=== PATIENT | male | born 1950 | race Caucasian/White ===

== ENCOUNTER 2022-03-18 10:53 | Day surgery (SDC) | payer MEDICARE, BC ==
[~2022-03-18] VITALS: Ht 180.3 cm; Wt 108.5 kg
[2022-03-18] VITALS (17 sets, daily range): BP systolic 99–175; BP diastolic 45–90
[2022-03-18] MEDS ORDERED: LEVO25TA7 PO (11:48)
[2022-03-18] MEDS ORDERED: VALS80TA32 PO (11:48)
[2022-03-18] MEDS ORDERED: HYDR-3973 PO (11:48)
[2022-03-18] MEDS ORDERED: ROPI2TAB7 PO (11:48)
[2022-03-18] MEDS ORDERED: DULO60CA65 PO (11:48)
[2022-03-18] MEDS ORDERED: ROSU20TA31 PO (11:48)
[2022-03-18] MEDS ORDERED: FLO0.4C PO (11:48)
[2022-03-18] MEDS ORDERED: BUPR1PAT23 TOP (11:48)
[2022-03-18] MEDS ORDERED: Vitamin D (11:53)
[2022-03-18] MEDS ORDERED: Benfotiamine (11:53)
[2022-03-18] MEDS ORDERED: MULT-1172 (11:53)
[2022-03-18] MEDS ORDERED: CYCL-1 PO (11:53)
[2022-03-18] MEDS ORDERED: ALPH100C PO (11:53)
[2022-03-18] MEDS ORDERED: UBID50TA3 PO (11:53)
[2022-03-18] MEDS ORDERED: FISH1CAP15 PO (11:53)
[2022-03-18] MEDS ORDERED: Super B Complex (11:53)
[2022-03-18 12:13] LABS: BASOPHILS % (AUTO) 0.4 % (0-1); EOSINOPHILS # (AUTO) 0.2 X10'3 (0-0.9); EOSINOPHILS % (AUTO) 2.1 % (0-6); HEMATOCRIT 42.1 % (42.0-52.0); HEMOGLOBIN 14.1 g/dl (14.0-17.9); LYMPHOCYTES # (AUTO) 2.5 X10'3 (1.1-4.8); LYMPHOCYTES % (AUTO) 32.9 % (21-51); MEAN CORPUSCULAR HEMOGLOBIN 30.1 PG (27.0-31.0); MEAN CORPUSCULAR HGB CONC 33.6 g/dL (33.0-36.5); MEAN CORPUSCULAR VOLUME 89.6 FL (78-98); MEAN PLATELET VOLUME 8.5 FL (7.4-10.4); MONOCYTES # (AUTO) 0.5 X10'3 (0-0.9); MONOCYTES % (AUTO) 5.9 % (2-12); NEUTROPHILS # (AUTO) 4.5 X10'3 (1.8-7.7); NEUTROPHILS % (AUTO) 58.7 % (42-75); PLATELET COUNT 167 X10'3 (140-440); RED CELL DISTRIBUTION WIDTH 15.3 % (11.5-14.5); WHITE BLOOD COUNT 7.7 X10'3 (4.5-11.0)
[2022-03-18 12:34] LABS: ALBUMIN 3.6 G/DL (3.4-5.0); ANION GAP 9 (8-16); BLOOD UREA NITROGEN 18 MG/DL (7-18); BUN/CREATININE RATIO 22.5 (5.4-32.0); CALCIUM 8.9 MG/DL (8.5-10.1); CHLORIDE 105 MMOL/L (99-107); GLUCOSE 93 MG/DL (70-104); POTASSIUM 4.2 MMOL/L (3.5-5.1); SODIUM 140 MMOL/L (135-145); TOTAL CARBON DIOXIDE 26.1 MMOL/L (24-32); eGFR > 90 ML/MIN
[2022-03-18] MEDS ORDERED: midazolam 1 mg/ML 2ml injection ONE (12:55)
[2022-03-18] MEDS ORDERED: fentaNYL/PF 50MCG/1 ML 2ML syringe ONE (12:55)
[2022-03-18] MEDS ORDERED: normal saline 1000ml 1,000 ML IV PRN (12:55)
[2022-03-18] MEDS ORDERED: LIDOcaine 1%/PF 5ML 10 MG/ML VIAL ONE (12:55)
[2022-03-18] MEDS ORDERED: normal saline 1000ml 1,000 ML IV SCH (13:00)
[2022-03-18] MEDS ORDERED: ROPINIRole 1mg tablet PO SCH (15:45)
[2022-03-18] MEDS ORDERED: HYDROcodone/acetaminophen 10/325mg tab PO ONE (15:45)
--- NOTE | 2022-03-18 15:45 | NUR ---
New order from Dr. Apple for ropinerole 2 mg ONCE and hydrocodone 10/325 once.
== END 2022-03-18 18:00 | disposition home or self-care (01) ==
LOC: SSTAY O 10:53
PROVIDERS: ATTEND Radiology Diagnostic Radiology
DX: I12.9 Hypertensive chronic kidney disease with stage 1 through stage 4 chronic kidney disease, or unspecified chronic kidney disease (principal); N18.2 Chronic kidney disease, stage 2 (mild); R80.9 Proteinuria, unspecified; Z98.890 Other specified postprocedural states; Z96.612 Presence of left artificial shoulder joint; Z96.611 Presence of right artificial shoulder joint; Z96.653 Presence of artificial knee joint, bilateral; Z79.899 Other long term (current) drug therapy; G89.29 Other chronic pain
CPT/HCPCS: 36415; 50200; 77012; 80048; 85025; 85610; 88305; 88313; 88348; 99152; 99153; J2250; J3010; J3490; 88300; 88346; 88350; A4615; A6258